=== PATIENT | female | born 1955 | race Caucasian/White ===

== ENCOUNTER 2017-12-31 05:22 | Day surgery (SDC) | payer OTHER ==
[~2017-12-31 05:22] MED LIST: AROMASIN25 MG PO; DEXILANT30 MG PO; LISINOPRIL10 MG PO; NORVASC10 MG PO; TOPROL XL50 M1 PO
[2017-12-31] MEDS ORDERED: ULTRACET PO (10:20)
== END 2017-12-31 12:20 | disposition home or self-care (01) ==
LOC: CIR.AMB 05:22
DX: K43.0 Incisional hernia with obstruction, without gangrene (principal)